=== PATIENT | male | born 1995 | race Caucasian/White ===

== ENCOUNTER 2022-08-16 22:20 | Emergency (ER) | payer OTHER, BC ==
[2022-08-16 22:35] VITALS: BP 126/81; PULSE 90; RESP 17; TEMP 98.1; BMI 22.4
== END 2022-08-16 22:48 | disposition home or self-care (01) ==
LOC: FER 22:20
DX: S66.912A Strain of unspecified muscle, fascia and tendon at wrist and hand level, left hand, initial encounter (principal); W19.XXXA Unspecified fall, initial encounter
CPT/HCPCS: 99282-25

== ENCOUNTER 2023-10-06 17:52 | Emergency (ER) | payer OTHER, BC ==
[2023-10-06 18:05] VITALS: BP 127/75; PULSE 80; RESP 15; TEMP 98.5; BMI 22.4
[2023-10-06 18:25] LABS: HEMATOCRIT 42.4 % (35.4-49); HEMOGLOBIN 14.4 G/dL (11.7-16.9); MCH 27.8 pg (25.7-33.7); MEAN CELL VOLUME 81.7 fl (80-96); MEAN PLT VOLUME 8.9 fl (7.5-11.1); PLATELET COUNT 178.5 10^3/uL (134-434); RBC 5.19 10^6/uL (4.00-5.60); RDW 14.1 % (11.9-15.9); WHITE BLOOD COUNT 5.5 10^3/uL (4.0-10.8)
[2023-10-06 18:33] LABS: PLATELET ESTIMATE ADEQUATE
[2023-10-06 18:49] LABS: ALBUMIN 4.6 g/dl (3.4-5.0); BILIRUBIN,TOTAL 0.5 mg/dl (0.2-1); CALCIUM 9.4 mg/dl (8.5-10.1); CREATININE 0.9 mg/dl (0.6-1.3); PHOSPHOROUS 3.6 (2.5-4.9); POTASSIUM 3.8 mmol/L (3.5-5.1); TOT PROT 7.3 g/dl (6.4-8.2); URIC ACID 5.8 mg/dl (2.6-7.2)
[2023-10-06 21:11] LABS: HIV INTERPRETATION NEGATIVE (NEGATIVE)
== END 2023-10-06 18:42 | disposition home or self-care (01) ==
LOC: FER 17:52
DX: S61.412A Laceration without foreign body of left hand, initial encounter (principal); X58.XXXA Exposure to other specified factors, initial encounter; Z77.21 Contact with and (suspected) exposure to potentially hazardous body fluids
CPT/HCPCS: 36415; 80053; 82465; 82977; 83615; 84100; 84478; 84550; 85025; 86704; 86803; 87340; 87389; 87517; 99283-25

== ENCOUNTER 2023-11-12 20:08 | Emergency (ER) | payer BC, OTHER ==
[2023-11-12 20:14] VITALS: BP 121/75; PULSE 89; RESP 17; TEMP 98.3; BMI 23.2
== END 2023-11-12 21:30 | disposition home or self-care (01) ==
LOC: FER 20:08
DX: S61.432A Puncture wound without foreign body of left hand, initial encounter (principal); W25.XXXA Contact with sharp glass, initial encounter
CPT/HCPCS: 73130-TC-LT-FY; 99283-25